=== PATIENT | female | born 2000 | race African-American/Black ===

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

== ENCOUNTER → 2020-02-02 | Outpatient (REF) | payer BC, OTHER, SELFPAY ==
[2020-03-01 14:01] LABS: CHLAMYDIA DNA AMPLIFICATION NEGATIVE (NEGATIVE); GC DNA AMPLIFICATION NEGATIVE (NEGATIVE)
== END ==
LOC: M SFHCLUC 18:19
PROVIDERS: ATTEND Physician Assistant
DX: Z11.3 Encounter for screening for infections with a predominantly sexual mode of transmission (principal)